=== PATIENT | male | born 1970 | race Two or more races ===

== ENCOUNTER 2018-08-18 02:30 | Inpatient (IN) | payer BC ==
--- NOTE | 2018-08-18 02:46 | PDOC ---
History of Present Illness - General Chief Complaint: Shortness of Breath Stated Complaint: BREATHING PROBLEMS Time Seen by Provider: 08/18/18 02:40
[2018-08-18 03:24] LABS: INR 1.11 (0.83-1.09); PROTHROMBIN TIME (PATIENT) 13.1 SEC (9.7-13.0)
[2018-08-18 03:36] LABS: ALBUMIN 3.1 g/dl (3.4-5.0); ALK PHOS 40 U/L (45-117); ANION GAP 6 MMOL/L (8-16); BILIRUBIN,TOTAL 0.2 mg/dL (0.2-1); BLOOD UREA NITROGEN 13 mg/dL (7-18); CALCIUM 7.7 mg/dL (8.5-10.1); CHLORIDE 109 mmol/L (98-107); CO2 25 mmol/L (21-32); CREATININE 0.8 mg/dL (0.55-1.3); GLUCOSE,RANDOM 94 mg/dL (74-106); MAGNESIUM 2.1 mg/dL (1.8-2.4); POTASSIUM 4.3 mmol/L (3.5-5.1); SGOT/AST 19 U/L (15-37); SGPT/ALT 23 U/L (13-61); SODIUM 139 mmol/L (136-145); TOT PROT 6.1 g/dl (6.4-8.2)
--- NOTE | 2018-08-18 03:50 | PDOC ---
History of Present Illness - General Chief Complaint: Shortness of Breath Stated Complaint: BREATHING PROBLEMS Time Seen by Provider: 08/18/18 02:40 History Source: Patient Exam Limitations: No Limitations - History of Present Illness Initial Comments: 08/18/18 04:04 The patient is a 48M with a PMH of [facility] cardiac arrythmia s/p defib/pacemaker placement who presents to the ER with complaints of CP and SOB. The patient states that he woke up from sleep feeling acutely SOB. He tried to "wait it off " but his SOB got worse. He also describes chest pressure during this episode that is retrosternal and nonradiating. He states that he currently "feels better " and denies any nausea, vomiting, or diaphoresis. Past History - Past Medical History Allergies/Adverse Reactions: Allergies Allergy/AdvReac Type Severity Reaction Status Date / Time No Known Allergies Allergy Verified 08/18/18 04:50 - Suicide/Smoking/Psychosocial Hx Smoking History: Never smoked Information on smoking cessation initiated: No Hx Alcohol Use: No Drug/Substance Use Hx: No Review of Systems - Review of Systems Able to Perform ROS?: Yes Comments:: 08/18/18 04:55 GENERAL/CONSTITUTIONAL: No fever or chills. No weakness. HEAD, EYES, EARS, NOSE AND THROAT: No change in vision. No ear pain or discharge. No sore throat. CARDIOVASCULAR: Positive for chest pressure. No palpitations or lightheadedness. RESPIRATORY: Positive for shortness of breath. No cough, wheezing, or hemoptysis. GASTROINTESTINAL: No nausea, vomiting, diarrhea, constipation, or abdominal pain. GENITOURINARY: No dysuria, frequency, hematuria, or change in urination. MUSCULOSKELETAL: No joint or muscle swelling or pain. No neck or back pain. SKIN: No rash or lesions. NEUROLOGIC: No headache, numbness, tingling, focal weakness, loss of consciousness, or change in strength/sensation. Is the patient limited [place]i proficient: No *Physical Exam - Vital Signs Last Vital Signs Temp Pulse Resp BP Pulse Ox 98.2 F 80 22 H 136/83 100 08/18/18 02:42 08/18/18 02:42 08/18/18 02:42 08/18/18 02:42 08/18/18 02:42 - Physical Exam Comments: 11/05/18 04:56 GENERAL: Well developed, well nourished. Awake and alert. No acute distress. HEENT: Normocephalic, atraumatic. Hearing grossly normal. Moist mucous membranes. PERRLA, EOMI. No conjunctival pallor. Sclera are non-icteric. NECK: Supple. Full ROM. CARDIOVASCULAR: Regular rate and rhythm. No murmurs, rubs, or gallops. PULMONARY: No evidence of respiratory distress. Lungs clear to auscultation bilaterally. No wheezing, rales or rhonchi. ABDOMINAL: Soft. Non-tender. Non-distended. No rebound or guarding. GENITOURINARY: No CVA tenderness bilaterally. MUSCULOSKELETAL: Normal range of motion at all joints. No bony deformities or tenderness. EXTREMITIES: No cyanosis. No clubbing. No edema. No calf tenderness or swelling. SKIN: Warm and dry. Normal capillary refill. No rashes. No jaundice. NEUROLOGICAL: Alert, awake, appropriate. Cranial nerves 2-12 grossly intact. Normal speech. PSYCHIATRIC: Cooperative. Good eye contact. Appropriate mood and affect. Heart Score/ECG Review - History History: Moderately suspicious - Electrocardiogram EKG: Non specific repolarization disturbance - Age Age: 45-65 - Risk Factors Risk Factors Heart Score: Yes Positive family hx of cardiac disease Based on the list above the patient has:: 1-2 risk factors - Troponin Troponin: 1-3x normal limit - Score Heart Score - Total: 5 #1 ECG reviewed & interpreted by me at: 04:57 General ECG Interpretation: Sinus Rhythm, Normal Rate, Normal Intervals, No acute ischemic changes Compared to previous ECG there are: Previous ECG unavail 08/18/18 04:57 NSR vent rate 80 MT 174 QRS 104 QTc 460 Q waves and t wave inversions noted in I and aVL No STD or ANTONY ED Treatment Course - LABORATORY CBC & Chemistry Diagram: 08/18/18 02:45 08/18/18 02:45 - ADDITIONAL ORDERS Additional order review: Laboratory Results 08/18/18 08/18/18 02:45 02:45 PT with INR 13.10 H INR 1.11 H Sodium 139 Potassium 4.3 Chloride 109 H Carbon Dioxide 25 Anion Gap 6 L BUN 13 Creatinine 0.8 Creat Clearance w eGFR > 60 Random Glucose 94 Calcium 7.7 L Magnesium 2.1 Total Bilirubin 0.2 AST 19 ALT 23 Alkaline Phosphatase 40 L Creatine Kinase 77 Troponin I 0.06 H Total Protein 6.1 L Albumin 3.1 L - RADIOLOGY Radiology Studies Ordered: Category Date Time Status CHEST X-RAY PORTABLE* [RAD] Stat Radiology 08/18/18 02:41 Ordered Medical Decision Making - Medical Decision Making 08/18/18 04:58 The patient is a 48M with a PMH of HOCM s/p ICD placement who presents to the ER with sudden onset SOB. EKG unremarkable except for q waves in lateral leads. Case d/w Dr. Chi who agrees to trend troponins as pt's initial troponin is 0.06. Will give asa and trend trop. Pt otherwise comfortable appearing and hemodynamically stable. 08/18/18 05:54 Repeat troponin ordered. I have d/w Dr. Beavers for admission under Dr. Morrow. *DC/Admit/Observation/Transfer Diagnosis at time of Disposition: NSTEMI (non-ST elevated myocardial infarction) - Discharge Dispostion Condition at time of disposition: Guarded Decision to Admit order: Yes - Referrals - Patient Instructions - Post Discharge Activity
[2018-08-18] MEDS ORDERED: CALCIUM GLUCONATE 10% - 1,000 MG/10 ML VIAL IVPB ONE (03:56)
[2018-08-18 04:30] LABS: BASO % 0.4 % (0-2.0); EOS % 2.2 % (0-4.5); HEMATOCRIT 37.4 % (35.4-49); HEMOGLOBIN 13.3 GM/dL (11.7-16.9); LYMPH % 21.7 % (8-40); MCH 31.2 pg (25.7-33.7); MCHC 35.7 g/dl (32.0-35.9); MEAN CELL VOLUME 87.4 fl (80-96); MEAN PLT VOLUME 8.8 fl (7.5-11.1); MONO % 5.8 % (3.8-10.2); NEUT % 69.9 % (42.8-82.8); PLATELET COUNT 221 K/MM3 (134-434); RBC 4.28 M/mm3 (4.00-5.60); RDW 13.2 % (11.9-15.9)
[2018-08-18] MEDS ORDERED: ASPIRIN COATED 81 MG TABLET.EC PO ONE (05:00)
[2018-08-18] MEDS ORDERED: ASPIRIN COATED 81 MG TABLET.EC ONE (05:14)
--- NOTE | 2018-08-18 06:55 | PDOC ---
Attending Attestation - Resident Resident Name: Jason Isaac - ED Attending Attestation I have performed the following: I have examined & evaluated the patient, The case was reviewed & discussed with the resident, I agree w/resident's findings & plan, Exceptions are as noted - HPI HPI: 08/18/18 06:53 cp + sob - Physicial Exam PE: 08/18/18 06:53 lungs cta - Medical Decision Making 08/18/18 06:53 known HOCM with negative gonzalez for CAD presents with cp, sob, abnl EKG of unclear duration, and elevated troponin admit for serial enzymes--ACS is unlikely given recent negative gonzalez
[2018-08-18] MEDS ORDERED: FUROSEMIDE 40 MG/4 ML INJECTABLE VIAL IVPUSH ONE (08:12)
--- NOTE | 2018-08-18 09:06 | CON.CARD ---
Cardiology Consult (text) - Consultation Consultation Note: Cardiology Consult Dictated IMP: Hypertrophic CM s/p ICD for primary prevention (septal thickness >3cm) Acute diastolic CHF- new onset REC: 1. Tele 2. Serial cardiac enzymes 3. BNP 4. Echo 5. IV Lasix: 20mg IV BID 6. Lexiscan MIBI when euvolemic
[2018-08-18 09:28] LABS: N-TERMINAL BNP 2164.8 pg/ml (5-125)
--- NOTE | 2018-08-18 10:28 | EKG ---
Test Reason : Blood Pressure : / mmHG Vent. Rate : 079 BPM Atrial Rate : 079 BPM P-R Int : 174 ms QRS Dur : 104 ms QT Int : 402 ms P-R-T Axes : 029 -59 090 degrees QTc Int : 460 ms POOR DATA QUALITY, INTERPRETATION MAY BE ADVERSELY AFFECTED NORMAL SINUS RHYTHM LEFT ANTERIOR FASCICULAR BLOCK LATERAL INFARCT , AGE UNDETERMINED ABNORMAL ECG NO PREVIOUS ECGS AVAILABLE Confirmed by GIULIA HUSSEIN MD ([id number]) on 08/18/2018 10:27:41 AM Referred By: Confirmed By:GIULIA HUSSEIN MD
[2018-08-18] MEDS: metoPROLOL SUCCINATE 25 MG TAB.SR.24H (FP) PO SCH (10:29)
[2018-08-18] MEDS ORDERED: METOPROLOL TARTRATE 25 MG TABLET (FP) ONE (10:30)
--- NOTE | 2018-08-18 11:30 | HP ---
DATE OF ADMISSION: DATE OF DICTATION: 08/18/2018 HISTORY OF PRESENT ILLNESS: This is a 48-year-old male known to have cardiomyopathy, status post ICD insertion, came early this morning to the emergency room with complaints of tightness in the chest and shortness of breath. In the ER, after getting Lasix, he felt better. He is also being followed by basket hand weaver, Dr. Chi. Patient was evaluated by him this morning. At present, he is comfortable in the bed. No chest pain. No shortness of breath. According to patient, he was taking all his medications. PHYSICAL EXAMINATION: Vital Signs: Today, blood pressure 136/82, respirations 20, temperature 98, pulse 80. HEENT: Unremarkable. Neck: Supple. No JVD. Lungs: Clear. Heart: S1, S2 normal. No S3, S4. Abdomen: Soft, nontender. Legs: No edema. Neurologic: Exam is grossly normal. LABORATORY REPORTS: WBC 9, hemoglobin 13.3. Chemistry: Sodium 139, potassium 4.3, chloride 109, CO2 of 25. BUN 13, creatinine 0.6. Troponin 0.06. CPK of 77. B-peptide is pending. CHEST X-RAY: A few congestive changes. No infiltrate. EKG: No changes. IMPRESSION: Congestive heart failure rule out myocardial infarction, arteriosclerotic heart disease, cardiomyopathy. PLAN: I admitted to ICU Cardiology. Consult Dr. Chi. We will follow. Felecia [id number]
--- NOTE | 2018-08-18 11:48 | CONS ---
DATE OF CONSULTATION: 08/18/2018 CARDIOLOGY CONSULTATION REQUESTED BY: Dr. Isaac HISTORY OF PRESENT ILLNESS: Patient is a 48-year-old male with hypertrophic cardiomyopathy status post primary prevention ICD placed at [facility] for a septal thickness greater than 3 cm and presyncope. He presents to the ER for evaluation of acute onset of shortness of breath which began last evening. He denies cough, fevers, chills, recent travel. Denies chest pain or ICD discharges. His chest x-ray showed pulmonary vascular congestion consistent with CHF. PAST MEDICAL HISTORY: As above. HOME MEDICATIONS: Include Toprol XL 25 mg p.o. daily and aspirin 81 mg p.o. daily. ALLERGIES: He has no known drug allergies. FAMILY HISTORY: Negative for hypertrophic cardiomyopathy or for first-degree relatives with sudden cardiac . SOCIAL HISTORY: with children. No alcohol, tobacco, or illicit drug use. PHYSICAL EXAMINATION: General: Alert and oriented. No acute distress. Vital Signs: Temperature 98.2, pulse 80, blood pressure 136/83. Neck: No JVD. Heart: S1, 2. There is a systolic murmur audible throughout the precordium. Chest: Revealed decreased breath sounds at the bases. Abdomen: Soft and nontender. Extremities: No edema. DIAGNOSTIC DATA: Chest x-ray revealed increased pulmonary vascular congestion changes. White count normal, hematocrit 37.4, platelets 221. INR 1.11. Sodium 139, potassium 4.3, BUN 13, creatinine 0.8. CK is 77. Troponin is negative x2 sets. EKG showed normal sinus rhythm with nonspecific ST waves and Q's in 1 and AVL. IMPRESSION: 1. Hypertrophic cardiomyopathy status post primary prevention implantable cardioverter defibrillator. 2. New onset of diastolic congestive heart failure. RECOMMENDATIONS: 1. Cycle cardiac enzymes. 2. BNP. 3. Echocardiogram. 4. Telemetry. 5. IV Lasix 20 mg IV b.i.d. as the patient is Lasix naive. 6. Continue Toprol at 12.5 mg daily. 7. Once euvolemic, will need ischemic workup with Lexiscan MIBI. Thank you for the consultation. RYAN MCCULLOUGH M.D. [id number]
[2018-08-18] MEDS ORDERED: FUROSEMIDE 40 MG/4 ML INJECTABLE VIAL ONE (14:39)
[2018-08-18] MEDS: FUROSEMIDE 40 MG/4 ML INJECTABLE VIAL IVPUSH SCH (15:29)
--- NOTE | 2018-08-18 16:13 | ECHO ---
Name: YANIQUE LAUREANO Exam:Adult Echocardiogram Study Date: 08/18/2018 02:30 PM Age: 48 yrs Reason For Study: hocm,chf Height: 68 in Weight: 220 lb BSA: 2.1 m2 MMode/2D Measurements & Calculations IVSd: 2.7 cm Ao root diam: 3.8 cm LVIDd: 4.1 cm LA dimension: 4.5 cm LVIDs: 2.5 cm LVPWd: 0.87 cm IVSs: 2.8 cm LVPWs: 1.3 cm EDV(Teich): 76.0 ml ESV(Teich): 21.9 ml Doppler Measurements & Calculations MV E max avinash: 75.0 cm/sec Ao V2 max: 194.6 cm/sec MV A max avinash: 65.4 cm/sec Ao max P.3 mmHg MV E/A: 1.1 Ao V2 mean: 132.6 cm/sec Ao mean P.3 mmHg Ao V2 VTI: 34.3 cm MR max avinash: 424.8 cm/sec TR max avinash: 239.2 cm/sec MR max P.2 mmHg TR max P.9 mmHg PA V2 max: 132.3 cm/sec PI end-d avinash: 85.5 cm/sec PA max P.0 mmHg PA V2 mean: 95.5 cm/sec PA mean P.1 mmHg PA V2 VTI: 29.9 cm Med Peak E' Avinash: 4.6 cm/sec Med E/e': 16.4 Lat Peak E' Avinash: 8.3 cm/sec Lat E/e': 9.1 Procedure A complete two-dimensional transthoracic echocardiogram was performed (2D, M-mode, Doppler and color flow Doppler). Left Ventricle The left ventricle is normal in size. There is severe asymmetric left ventricular hypertrophy. There is systolic anterior motion of the chordal apparatus. Left ventricular systolic function is normal. Ejec tion Fraction = 65-70%. TDI reveals impaired relaxation with elevated filling pressure (E/E' 17). No regio nal wall motion abnormalities noted. Right Ventricle The right ventricle is normal size. The right ventricular systolic function is normal. Atria The left atrium is mildly dilated. Right atrial size is normal. Mitral Valve The mitral valve is normal in structure and function. There is mild to moderate mitral regurgitation. Tricuspid Valve The tricuspid valve is normal in structure and function. No tricuspid regurgitation. Aortic Valve The aortic valve is normal in structure and function. No aortic regurgitation is present. Pulmonic Valve The pulmonic valve is not well visualized. Mild pulmonic valvular regurgitation. Great Vessels The aortic root is normal size. Pericardium/Pleura There is no pericardial effusion. Interpretation Summary The left ventricle is normal in size. There is severe asymmetric left ventricular hypertrophy suggestive of hypertrophic cardiomyopathy Left ventricular systolic function is normal. No regional wall motion abnormalities noted. Ejection Fraction = 65-70%. TDI reveals impaired relaxation with elevated filling pressure (E/E' 17) There is systolic anterior motion of the chordal apparatus. The right ventricular systolic function is normal. The left atrium is mildly dilated. Right atrial size is normal. There is mild to moderate mitral regurgitation. Mild pulmonic valvular regurgitation. There is no pericardial effusion. Previous study is not available for comparison Moe Reardon MD 08/18/2018 04:12 PM
[2018-08-18 16:46] VITALS: TEMP 97.9
[2018-08-19] MEDS ORDERED: FUROSEMIDE 40 MG/4 ML INJECTABLE VIAL ONE (06:04)
[2018-08-19] MEDS: FUROSEMIDE 40 MG/4 ML INJECTABLE VIAL IVPUSH SCH ×2 (06:14→14:32)
[2018-08-19 06:39] LABS: ANION GAP 6 MMOL/L (8-16); BLOOD UREA NITROGEN 15 mg/dL (7-18); CALCIUM 8.6 mg/dL (8.5-10.1); CHLORIDE 103 mmol/L (98-107); CO2 28 mmol/L (21-32); CREATININE 0.9 mg/dL (0.55-1.3); GLUCOSE,RANDOM 92 mg/dL (74-106); POTASSIUM 3.9 mmol/L (3.5-5.1); SODIUM 137 mmol/L (136-145)
[2018-08-19 07:54] VITALS: BP 116/80; PULSE 82
[2018-08-19 08:52] VITALS: BMI 32.6
--- NOTE | 2018-08-19 09:26 | PN ---
Progress Note, Physician Chief Complaint: feeling better History of Present Illness: Weight is down 5lbs - Current Medication List Current Medications: Active Medications Furosemide (Lasix Injection -) 20 mg IVPUSH BID@0600,1400 [facility] Last Admin: 08/19/18 06:14 Dose: 20 mg Metoprolol Succinate (Toprol Xl -) 12.5 mg PO DAILY [facility] Last Admin: 08/18/18 10:29 Dose: 12.5 mg - Objective Vital Signs: Vital Signs Temperature 97.9 F 08/19/18 08:38 Pulse Rate 82 08/19/18 08:38 Respiratory Rate 17 08/19/18 08:38 Blood Pressure 116/80 08/19/18 08:38 O2 Sat by Pulse Oximetry (%) 100 08/19/18 06:00 Constitutional: Yes: Calm Cardiovascular: Yes: Regular Rate and Rhythm Respiratory: Yes: CTA Bilaterally Gastrointestinal: Yes: Soft Edema: No Neurological: Yes: Alert, Oriented ...Motor Strength: WNL Labs: CBC, BMP 08/18/18 02:45 08/19/18 05:15 INR, PTT INR 1.11 (0.83-1.09) H 08/18/18 02:45 Laboratory Tests 08/19/18 05:15 Sodium 137 Potassium 3.9 Creat Clearance w eGFR > 60 - ....Imaging EKG: Image Reviewed (NSR) Assessment/Plan IMP: Hypertrophic CM s/p ICD for primary prevention (septal thickness >3cm) Acute diastolic CHF- new onset REC: 1. Tele 2. Serial cardiac enzymes- borderline elevated TnI likely due to CHF 3. BNP markedly elevated, c/w the clinical scenario 4. Echo reviewed- + HCM, diastolic dysfx. Mild MR 5. IV Lasix: 20mg IV BID 6. Needs definitive coronary assessment: elevated TnI, new onset CHF. Have discussed [facility], risks/benefits Patient has agreed to undergo diagnostic cath. Plan to transfer to [facility], Dr. Wetzel accepted for transfer.
[2018-08-19] MEDS: metoPROLOL SUCCINATE 25 MG TAB.SR.24H (FP) PO SCH (09:30)
--- NOTE | 2018-08-19 09:37 | PN ---
Progress Note, Physician Chief Complaint: No SOB History of Present Illness: Admitted with SOB and chest pain - Current Medication List Current Medications: Active Medications Aspirin (Asa -) 81 mg PO DAILY [facility] Furosemide (Lasix Injection -) 20 mg IVPUSH BID@0600,1400 [facility] Last Admin: 08/19/18 06:14 Dose: 20 mg Metoprolol Succinate (Toprol Xl -) 12.5 mg PO DAILY [facility] Last Admin: 08/19/18 09:30 Dose: 12.5 mg - Objective Vital Signs: Vital Signs Temperature 97.9 F 08/19/18 08:38 Pulse Rate 82 08/19/18 08:38 Respiratory Rate 17 08/19/18 08:38 Blood Pressure 116/80 08/19/18 08:38 O2 Sat by Pulse Oximetry (%) 100 08/19/18 06:00 Constitutional: Yes: No Distress Eyes: Yes: WNL HENT: Yes: WNL Neck: Yes: WNL Cardiovascular: Yes: WNL Respiratory: Yes: Regular Gastrointestinal: Yes: WNL ...Rectal Exam: Yes: WNL, Deferred Genitourinary: Yes: WNL Breast(s): Yes: WNL Musculoskeletal: Yes: WNL Edema: No Peripheral Pulses WNL: Yes Neurological: Yes: Alert Psychiatric: Yes: Alert Labs: CBC, BMP 08/18/18 02:45 08/19/18 05:15 INR, PTT INR 1.11 (0.83-1.09) H 08/18/18 02:45 Assessment/Plan Case discussed with Dr Hood,patient needs cardiac cath
[2018-08-19] MEDS ORDERED: ASPIRIN 81 MG CHEWABLE TABLETS PO SCH (10:00)
== END 2018-08-19 15:25 | disposition short-term general hospital (02) | DRG 280 ==
LOC: JER 02:30 → JERBED 04:21 → J4W 08-19 07:10
PROVIDERS: ADMIT Internal Medicine; ATTEND Internal Medicine
DX: I21.4 Non-ST elevation (NSTEMI) myocardial infarction (principal); I50.31 Acute diastolic (congestive) heart failure; I42.1 Obstructive hypertrophic cardiomyopathy; Z95.1 Presence of aortocoronary bypass graft
CPT/HCPCS: 36415; 71045-TC-FY; 80048; 80053; 82550; 83735; 83880; 84484; 85025; 85610; 93005; 93010; 93306-TC; 99285-25

== ENCOUNTER 2022-06-29 05:06 | Day surgery (SDC) | payer BC ==
[2022-06-27 15:21] VITALS: BMI 33.4
[2022-06-29 09:23] VITALS: TEMP 97
[2022-06-29 09:50] VITALS: RESP 20
[2022-06-29 10:43] VITALS: BP 100/58; PULSE 54
== END 2022-06-29 10:00 | disposition home or self-care (01) ==
LOC: JASU-ENDO 05:06
PROVIDERS: ATTEND Internal Medicine Gastroenterology
PROC: 0DJD8ZZ Inspection of Lower Intestinal Tract, Via Natural or Artificial Opening Endoscopic (ICD-10-PCS; principal; 2022-06-29 09:00)
DX: Z12.11 Encounter for screening for malignant neoplasm of colon (principal); K64.8 Other hemorrhoids